=== PATIENT | male | born 2000 | race African-American/Black ===

== ENCOUNTER 2022-08-10 09:14 | Outpatient (CLI) | payer OTHER, SELFPAY ==
--- NOTE | 2022-08-10 09:35 | ECG_ITS ---
Measurements Intervals [place] Rate: 61 P: -44 [place]: 131 QRS: 81 QRSD: 92 T: 62 QT: 377 QTc: 381 Interpretive Statements SINUS RHYTHM ST ELEVATION IN ANTEROLAT/INF LEADS- PROBABLY EARLY REPOLARIZATION BORDERLINE ECG NO PREVIOUS ECG AVAILABLE FOR COMPARISON Electronically Signed On 08-10-2022 10:20:49 MERCHANDISE ADJUSTMENT CLERK by Brad Lockwood D.O.
== END 2022-08-10 09:15 | disposition home or self-care (01) ==
LOC: ANHLAB 09:21
PROVIDERS: PCP Pediatrics; Visit Provider Emergency Medicine
DX: R00.2 Palpitations (principal); R94.31 Abnormal electrocardiogram [ECG] [EKG]
CPT/HCPCS: 93005

== ENCOUNTER 2022-11-17 08:39 | Outpatient (CLI) | payer OTHER, SELFPAY ==
--- NOTE | 2022-11-17 | ECHO_ITS ---
Patient Info Name: Jin Reyes Age: 22 years : 2000 Gender: Male Ht: 73 in Wt: 160 lbs BSA: 1.93 m2 HR: 65 bpm BP: 130 / 78 mmHg Technical Quality: Good Exam Date: 11/17/2022 9:05 AM Exam Location: [facility] Patient Status: Outpatient Admit Date: 11/17/2022 Staff Ordering Physician: Rowena, Shane Tobias MD Supervisor Alum Plant: Inés Fernandez RDCS Attending Provider: Rowena, Shane Tobias MD Referring Physician: Rowena PALM; Exam Type: CA echo doppler color flow Study Info Indications - palpitations Complete two-dimensional, color flow and Doppler transthoracic echocardiogram is performed. Summary 1. Complete two-dimensional, color flow and Doppler transthoracic echocardiogram is performed. 2. Left ventricular chamber dimension is normal. 3. Left ventricular systolic function is normal, estimated at 60-65%. 4. The left ventricular diastolic function is normal. 5. E/e' 4 is not elevated. 6. No pulmonary hypertension, estimated pulmonary arterial systolic pressure is 28 mmHg. 7. There is trace pulmonic regurgitation. Left Ventricle E/e' 4 is not elevated. Left ventricular chamber dimension is normal. Left ventricular systolic function is normal, estimated at 60-65%. The left ventricular diastolic function is normal. Right Ventricle Right ventricular chamber dimension is normal. Right ventricular systolic function is normal. Left Atria Left atrial chamber dimension is normal. Right Atria Right atrial chamber dimension is normal. Aortic Valve The aortic valve is trileaflet. There is no aortic valve stenosis. There is no aortic valve regurgitation. Pulmonic Valve There is trace pulmonic regurgitation. Mitral Valve There is no mitral valve stenosis. There is no mitral valve regurgitation. Tricuspid Valve There is no tricuspid valve regurgitation. No pulmonary hypertension, estimated pulmonary arterial systolic pressure is 28 mmHg. Pericardium/Pleural There is no pericardial effusion. Inferior Vena Cava Normal inferior vena cava with >50% collapse upon inspiration consistent with normal right atrial pressure, 5 mmHg. Aorta The aortic root size at the sinus of Valsalva is normal. Left Ventricular Outflow Tract Name Value Normal LVOT 2D LVOT Diameter 2.0 cm LVOT Doppler LVOT Peak Gradient 5 mmHg LVOT Mean Gradient 2 mmHg LVOT VTI 22 cm LVOT VTI/AV VTI Ratio 0.9 LVOT Stroke Volume 70 ml LVOT CO 13.5 l/min LVOT CI 7.0 l/min/m2 Pulmonic Valve Name Value Normal PV Doppler PV Peak Gradient 4 mmHg Mitral Valve Name Value Normal
== END 2022-11-17 08:40 | disposition home or self-care (01) ==
PROVIDERS: PCP Pediatrics; Visit Provider Family Medicine
DX: R00.2 Palpitations (principal); Z84.89 Family history of other specified conditions
CPT/HCPCS: 93306